=== PATIENT | female | born 1960 | race Caucasian/White ===

== ENCOUNTER 2016-08-03 09:15 | Day surgery (SDC) | payer OTHER ==
[~2016-08-03] VITALS: Ht 162.6 cm; Wt 89.8 kg
[~2016-08-03 09:15] MED LIST: ACET325T51 PO; ALBU2.5V4 INHALATION; ALBU8.5H2 INHALATION; BECL8.7A6 INHALATION; CETI10CA PO; CLOT15CR5 TP; CYCL10TA9 PO; DIAZ5TAB PO; DULO30CA50 PO; FLUT9.9S NS; HYDR-4003 PO; IBUP200C PO; LOSA25TA21 PO; Lactated Ringer's 1,000 ML IV ONE; OMEP40CA36 PO; PROZ20 PO
[2016-08-03] MEDS ORDERED: Lidocaine PF 1% 30 mL Inj ONE (09:16)
[2016-08-03] MEDS ORDERED: Propofol 10,000 mCg/mL 20 mL Inj ONE (09:16)
[2016-08-03 09:51] VITALS: BP 154/78; PULSE 80; RESP 16; O2SAT 98
[2016-08-03] MEDS ORDERED: Lactated Ringer's 1,000 ML IV SCH (10:13)
[2016-08-03] MEDS ORDERED: MetoCLOpramide 5 mg/mL 2 mL Inj IVPUSH PRN (10:15)
[2016-08-03] MEDS ORDERED: Ondansetron 2 mg/mL 2 mL Inj IVPUSH PRN (10:15)
[2016-08-03 10:53] VITALS: BP 137/80; PULSE 82; RESP 16; O2SAT 97
[2016-08-03 11:03] VITALS: BP 150/89; PULSE 75; RESP 16; O2SAT 96
[2016-08-03 11:13] VITALS: BP 126/98; PULSE 86; RESP 16; O2SAT 99
[2016-08-03 11:20] VITALS: BP 146/86; PULSE 76; RESP 16; O2SAT 99
--- NOTE | 2016-08-03 11:47 | PCM.ENDEGD ---
EGD Date of Service: August 03, 2016 Physician Calos Blackwell MD Pre Procedure Diagnosis: Abdominal pain Post Procedure Dx & Findings: Antritis duodenitis esophageal scarring and possible short segment Hammonds's. Procedure Esophagogastroduodenoscopy PROCEDURE IN DETAIL: After proper sedation, Olympus video endoscope was inserted into patient's mouth and esophagus was successfully intubated. Scope introduced esophagus. Esophagus showed normal shiny whitish mucosa consistent with squamous cell component. Z line was not intact at 40 cm from the incisors. There was evidence of mild scarring which was superficial. Furthermore there is defect in the Z line and some location little bit more than a centimeter. Also noted healing erosion. 4 quadrant biopsies obtained to rule out Hammonds's. Biopsy obtained at the scarring and also at the healing erosion. Narrowing banding used. All tissues are placed in the same bottle. Scope further advanced to the stomach. The antrum had isolated redness and erosions consistent with gastritis. Biopsies obtained. Cardia fundus body antrum pylorus were all visualized. Retroflexion was done. Stomach was easily inflated and deflatable using air. Scope further events to the distal duodenum. Duodenum revealed normal villous structures with normal appearing folds but had few irritation which was patchy. These were biopsied. Impression Possible barrette's with superficial scarring Gastritis Duodenitis Recommendations Follow up in GI clinic Await Biopsies Presedation Assessment Risks and Benefits Informed consent was obtained from the patient after all risks and benefits including but not limited to drug reaction, infection, pain, bleeding, perforation, as well as alternatives were discussed. Patient monitoring Continuous pulse oximetry, cardiac monitoring, blood pressure monitoring, IV access, and oxygen at 2L per nasal cannula. Complications There were no periprocedural complications identified. Post Procedure Plan Post Procedure Recommendations 1. Restrict activities today. 2. Resume normal activities in the morning. 3. Resume medications. 4. GERD behavioral modification: - Avoid fatty, acidic, spicy, large meals - Do not lie down after meals - Do not eat or drink anything for at least 2 1/2 hours before going to bed at night - Discontinue tobacco and alcohol - Decrease or avoid caffeine - Avoid chocolate and mints - Decrease weight - Avoid aspirin and non steroidal anti-inflammatory agents (NSAID) such as Aleve, Advil, Mobic, Naproxen, Ibuprofen, etc 5. Add proton pump inhibitor. Take 30 minutes before 1st meal of the day. 6. Patient informed of normal post procedure side effects as bloating, drowsiness, blood streaking in the stool 7. If gastric biopsy reveal H.pylori, continue with appropriate treatment 8. If small bowel biopsy reveals celiac, continue with appropriate treatment 9. Please don't hesitate to call me with any questions Calos Blackwell MD August 03, 2016 11:47
--- NOTE | 2016-08-03 11:48 | PCM.ENDCOL ---
Colonoscopy Date of Service: August 03, 2016 Physician Calos Blackwell MD Pre Procedure Diagnosis: Screening Post Procedure Dx & Findings: Polyps hemorrhoids Procedure Colonoscopy PROCEDURE IN DETAIL: Prep adequate Withdrawal time 13 minutes After unremarkable rectal examination the Olympus video colonoscope was inserted patient's anal canal and was advanced to cecum. Landmarks were identified including the ileocecal valve and appendiceal orifice. Scope was withdrawn systematically. Visualized colonic mucosa showed healthy shiny mucosa with normal healthy-appearing vasculature. In the rectosigmoid junction, there were total of 8 polyps. The sizes varied from 1-3 mm in size. These were all resected completely using forceps and snares. Narrow banding was used. The mucosal pattern was not convincingly hyperplastic. I am not sure if it also convincingly adenomatous either. In the rectum retroflexion was done which showed hemorrhoids. Anal canal was inspected carefully on the way out and hemorrhoids noted. Impression Polyp 8 status post complete removal Hemorrhoids Recommendation Repeat colonoscopy 3 years Presedation Assessment Risks and Benefits Informed consent was obtained from the patient after all risks and benefits including but not limited to drug reaction, infection, pain, bleeding, perforation, as well as alternatives were discussed. Patient monitoring Continuous pulse oximetry, cardiac monitoring, blood pressure monitoring, IV access, and oxygen at 2L per nasal cannula. Complications There were no periprocedural complications identified. Post Procedure Plan Post Procedure Recommendations 1. Restrict activities today. 2. Resume normal activities in the morning. 3. Resume medications. 4. Patient informed of normal post procedure side effects as bloating, drowsiness, blood streaking in the stool. 5. average risk CRCS. If colon polyps come back as: -Hyperplastic- can repeat colonoscopy in 10 years -Tubular adenoma- repeat colonoscopy in 5 years -Tubulovillous/villous adenoma- repeat colonoscopy in 3 years -If any dysplasia- return to clinic as soon as possible 6. Please don't hesitate to call me with any questions. Calos Blackwell MD August 03, 2016 11:48
--- NOTE | 2016-08-03 17:38 | PCM.HPANE ---
Patient Data Surgeon Admitting Provider: Attending Provider:Calos Blackwell MD Primary Care Physician:Vickie Mujica MD Other Provider:[facility] Reason for Visit Altered Bowel Function, Epigastric Abd Pain Ht/WT & BMI Height (Feet): 5 Height (Inches): 4 Weight (Kilograms): 89.81 Body Mass Index 33.00 Allergies Coded Allergies: oxycodone (Verified Allergy, Intermediate, NAUSEA, 08/02/16) Penicillins (Verified Adverse Reaction, Severe, N/V, 09/14/15) erythromycin base (Verified Adverse Reaction, Severe, GI cramps, 09/14/15) gabapentin (Verified Adverse Reaction, Severe, chest pressure, 09/14/15) hydrochlorothiazide (Verified Adverse Reaction, Severe, abd pain, 09/14/15) lisinopril (Verified Adverse Reaction, Severe, cough, 09/14/15) phenobarbital (Verified Adverse Reaction, Severe, Extreme lethargy, ) Uncoded Allergies: IAZIDE (Adverse Reaction, Unknown, 08/02/16) Past Anesthesia History Anesthesia History: Denies:: Abnormal Airway, Anesthesia Reactions, Difficult Intubation, Fam Anesthesia Reaction, Fam Malignant Hypertherm, Malignant Hyperthermia Diabetes History Hx Diabetes?: No MRSA MRSA: No Medications Home Meds Incl Beta Diego: No Reported Medications Duloxetine 30 Mg Capsule.dr30 Mg PO DAILY Ref 0 08/02/16 Acetaminophen 325 Mg Krmfpm755 Mg PO Q4H PRN For Fever Ref 0 09/22/15 Cetirizine HCl (Zyrtec)10 Mg Ngtyegs68 Mg PO HS #30 CAPSULE Ref 0 09/14/15 Diazepam (Valium)5 Mg Tablet5 Mg PO HS PRN PRN 30 Days Ref 0 09/14/15 Beclomethasone Dipropionate (Qvar)8.7 Gm Aer.w.adap2 Puff INHALATION BID #8.7 GM 09/14/15 Fluoxetine (Prozac)20 Mg Yxvkwhv53 Mg PO DAILY Ref 0 09/14/15 Omeprazole 40 Mg Capsule.dr40 Mg PO BID Ref 0 09/14/15 Losartan Potassium 25 Mg Urjfiu94 Mg PO DAILY 09/14/15 Ibuprofen 200 Mg Hgztbhl461 Mg PO QID PRN For Pain Ref 0 09/14/15 Hydrocodone-Acetaminophen 5-325 mg 1 Each Tablet1 Tablet PO Q6H PRN For Pain Ref 0 09/14/15 Fluticasone Propionate (Flonase Allergy Relief)50 Mcg/Actuation [place].susp9.9 Ml NS DAILY 09/14/15 Cyclobenzaprine 10 Mg Repndp09 Mg PO Q6H PRN Spasm 09/14/15 Albuterol Neb Soln 2.5 Mg/3 Ml Vial.neb2.5 Mg INHALATION TID PRN For Shortness of Breath Ref 0 09/14/15 Albuterol HFA (Proair HFA)8.5 Gm Hfa.aer.ad2 Puffs INHALATION Q4H #1 INHALER 09/14/15 Discontinued Reported Medications Clotrimazole/Betamethasone Dip (Lotrisone)15 Gm Cream..g.1 Applic TP BID 09/14/15 History History of ENT Problems?: Yes HEENT History: Positive for:: Sinus Problem (SEASONAL ALLERGIES) Denies:: Abnormal Airway Cataracts Difficult Intubation Dysphagia Glaucoma Hearing Problem TMJ Denture Type: None Teeth Condition: Within Normal Limits Hx of Heart Problems?: Yes Cardiovascular History: Positive for:: Hypertension Valvular Heart Disease (MVP) Denies:: AICD Abdominal Aortic Aneurism Atrial Fibrillation Cardiac Surgery Chest Pain Congestive Heart Failure Coronary Artery Disease Edema Heart Murmur (ECHO 06/2014 EF 60-65%) Irregular Heartbeat (PT REPORTS PALPITATIONS) Pacemaker Peripheral Vascular Rheumatic Fever Thrombophlebitis Hx of Respiratory Problem?: Yes Respiratory History: Positive for:: Asthma Tuberculosis (SKIN TEST POSITIVE, NO TREATMENT ) Use of C-PAP Machine (TASHIA+ ??CPAP??) Denies:: COPD Chest Surgery Cough Dyspnea Emphysema Hemoptysis Oxygen Administration Pneumonia Pulmonary Embolism Use of Inhalers / NEBS Hx Neurologic Problems?: Yes Neurological History: Positive for:: Headaches Denies:: Alzheimer's Disease CVA Dementia Dizziness Multiple Sclerosis Parkinson's Disease Peripheral Neuropathy Seizures TIA Hx of GI Problems?: Yes Gastrointestinal History: Denies:: Cirrhosis Diverticulitis Gall Bladder Disease Gastroesphageal Reflux Gastrointestinal Bleeding Heartburn Hepatitis Hiatal Hernia Liver Disease Rectal Bleeding Hx of Problems?: Yes Genitourinary History: Denies:: HX of Hemodialysis Kidney Stones Urinary Tract Infection HX of Peritoneal Dialysis: No Female Hx: Denies:: Currently (LAST CYCLE MORE THAN 2 YEARS AGO ) Endometriosis Pelvic Inflammatory Problems with Breasts? Skin History: Positive for:: History Skin Disorders? (ECZEMA) Denies:: Pressure Ulcers Hx Musculoskeletal Problems?: Yes Musculoskeletal History: Positive for:: Back Injury (C/OF NECK & LUMBAR PAIN) Fibromyalgia Musculoskeletal Trauma (Cervical fusion) Denies:: Degenerative Joint Joint Replacement Myasthenia Gravis Osteoarthritis Rheumatoid Arthritis Systemic Lupus Hx of Psycho/Social Problems?: Yes Psycho Social History: Positive for:: Anxiety Hx Depression Denies:: Bipolar Disorder Suicide Attempt Hx Surgeries?: Yes (NECK SX X2, OVARY REMOVED, TONSIL) Hx Any Other Health Problems?: Yes Other History: Denies:: Cancer Endocrine Disease (C/OF NIGHT SWEATS,HEAT INTOLERANCE) Hospitalization Thyroid Disease History Blood Transfusions: Denies:: Blood Transfusions Hx Diabetes: No Hx Alcohol Use: YesHx Substance Use: No Smoking Status: Current Every Day Smoker Have You Smoked inLast 12 mo: Yes Stop/Bang Treated for Sleep Apnea?: Yes Do You Have a CPAP Machine?: No (NON-COMPLIANT WITH CPAP) S-Snoring: Do You Snore Loudly: Yes T-Tired: feel tired, fatigued: Yes O-Obsered: Observed not breath: Yes P-Blood Pressure: treated: Yes B- Body Mass Index > 35 kg/m2: No A- Age over 50: Yes N- Neck Large Circumference: No G- Gender Male: No TASHIA Total Score: 5 Risk Assessment Category Category 1A: Patient has history of documented sleep apnea, and HAS NOT received any narcotic, sedative or anesthesia administration during this stay. Category 1B: Patient has history of documented sleep apnea, and HAS received any narcotic , sedative or anesthesia administration during this stay Category 2: Patient has SUSPECTED Obstructive Sleep Apnea, and HAS received any narcotic , sedative or anesthesia administration during this stay. Category 3: Patient has SUSPECTED Obstructive Sleep Apnea and HAS NOT received narcotic, sedative or anesthesia administration during this stay. Category 4: Outpatient in Procedural Areas with known sleep apnea or who screen positive for High Risk via the STOP/BANG questionnaire. Exam Exam Vital Signs Vital Signs Date Time Temp Pulse Resp B/P Pulse Ox O2 Delivery O2 Flow Rate FiO2 08/03/16 09:51 36.4 80 16 154/78 98 Room Air General Appearance: Alert, Oriented X3, Cooperative, No Acute Distress HEENT/AIRWAY: MP 2, Neck Movement (FROM), Mouth Opening (3 FBMO) Lungs: Clear to Auscultation, Normal Air Movement Heart: Exam Unremarkable, Regular Rate/Rhythm, No Murmurs/Rubs/Gallops Meds/Labs/Diagnostics Admission Meds Current Medications Lactated Ringer's (Lr) 1,000 ml @ 10 mls/hr Q24H ONCE IV Last administered on 08/03/16 09:56; Start 08/03/16 at 06:00; Stop 08/04/16 at 05:59 Plan Impression Patient chart reviewed, patient interviewed and anesthestic plan with risks, benefits, and alternatives discussed, and informed consent obtained. NPO per Anesth. Guidelines: Yes ASA Physical Status: ASA3 Severe Disease Anesthetic Plan: MAC Bene/Risks/Altern/Consents: Yes HP Complete Prior to Induction: Yes Ant Martinez MD August 03, 2016 10:13
--- NOTE | 2016-08-03 17:39 | PCM.ANEP1 ---
Post Anesthesia PACU Phase 1 Assessment Vital Signs Vital Signs Date Time Temp Pulse Resp B/P Pulse Ox O2 Delivery O2 Flow Rate FiO2 08/03/16 11:20 76 16 146/86 99 Room Air 08/03/16 11:13 86 16 126/98 99 Room Air 08/03/16 11:03 75 16 150/89 96 Room Air 08/03/16 10:53 36.6 82 16 137/80 97 Room Air 08/03/16 09:51 36.4 80 16 154/78 98 Room Air Anesthetic Administered: GA Level of Alertness: Awake, talking GR's with Equal Strength: Yes Pain: No Nausea or Vomiting: No CV Function and Hydration: No Airway Device: none Oxygen Delivery: Room Air Lungs: Clear to Auscultation, Normal Air Movement Dermatome Level: Full Sensation PACU Phase 2 Assessment Complications: No Follow up Care: N/A Patient Instructions Provided: N/A Ant Martinez MD August 03, 2016 17:39
--- NOTE | 2016-08-04 14:04 | PATH ---
SURGICAL PATHOLOGY Attending Physician:Calos Blackwell M.D. CASE STATUS: Signed Out PATIENT NAME: SUZIE MARC PID: [id number] : 1960 DATE COLLECTED:08/01/2016 00:00 SPECIMEN: 1: Duodenum, Biopsy 2: Stomach, Antrum, Biopsy 3: Esophagus, Biopsy 4: Rectum, Biopsy CLINICAL HISTORY: 1. DUODENAL BXS 2. ANTRAL BXS 3. DISTAL ESOPHAGUS BXS 4. RECTAL POLYP X8 FINAL DIAGNOSIS: 1. Duodenal Biopsy: Duodenal mucosa with focal, mild active inflammation, non-specific. Negative for features of sprue, dysplasia, or malignancy. 2. Antral Biopsy: Portions of gastric body-type mucosa with mild chronic gastritis. Negative for Helicobacter organisms by H&E stain. Negative for intestinal metaplasia, dysplasia, and malignancy. 3. Distal Esophagus, Biopsies: Squamocolumnar junctional mucosa with no diagnostic abnormality. Negative for intestinal metaplasia. Negative for dysplasia and malignancy. 4. Rectal Polyps, Biopsies: Multiple portions (approximately 6) of sessile serrated adenoma. ICD10: K63.5 GROSS DESCRIPTION: The specimen is received in four formalin filled containers labeled with the patient's name. 1). The specimen is sublabeled "duodenal" and consists of 2 portions of tissue which aggregate to 0.2 x 0.2 x 0.2 CM. The specimen is entirely submitted in cassette 1A. 2). The specimen is sublabeled "antral" and consists of 2 tiny portions of tissue which aggregate to 0.3 x 0.3 x 0.2 CM. The specimen is entirely submitted in cassette 2A. 3). The specimen is sublabeled "distal esophagus" and consists of 4 portions of tissue which aggregate to 0.4 x 0.4 x 0.3 CM. The specimen is entirely submitted in cassettes 3A. 4). The specimen is sublabeled "rectal polyps" and consists of 4 portions of tissue which aggregate to 0.4 x 0.4 x 0.2 CM. The specimen is entirely submitted in cassette 4A. 08/03/2016 [facility] ICD-9 CODES: CPT CODES: 1: 74993 2: 51956 3: 14002 4: 31052 Electronically Signed Out Shilpa Grimes MD [facility] Pathology [facility] [address], [place] [address] Technical component performed at [facility], [address], [place], [address]
== END 2016-08-03 23:59 | disposition home or self-care (01) ==
LOC: END 09:15
PROVIDERS: ATTEND Internal Medicine
DX: D12.7 Benign neoplasm of rectosigmoid junction (principal); K29.80 Duodenitis without bleeding; K29.50 Unspecified chronic gastritis without bleeding; G47.33 Obstructive sleep apnea (adult) (pediatric); F17.210 Nicotine dependence, cigarettes, uncomplicated; I34.1 Nonrheumatic mitral (valve) prolapse; M79.7 Fibromyalgia; F32.9 Major depressive disorder, single episode, unspecified; F41.9 Anxiety disorder, unspecified; J45.30 Mild persistent asthma, uncomplicated; I10 Essential (primary) hypertension
CPT/HCPCS: 36415; 43239; 45380; 45385; 80053; 80061; 84443; 85025; J7120